=== PATIENT | female | born 1960 | race Caucasian/White ===

== ENCOUNTER 2023-07-04 13:45 | Outpatient (CLI) | payer OTHER, SELFPAY ==
--- NOTE | ~2023-07-04 | XR_ITS ---
AP and lateral views of the bilateral hips Clinical history: Pain Findings: No acute fracture or dislocation is seen. Osseous alignment is anatomic. Bilateral hip and SI joint spaces are preserved. Soft tissues are unremarkable. Impression: No significant abnormality is seen. Reviewed, dictated and finalized at location . Impression: No significant abnormality is seen.
--- NOTE | ~2023-07-04 | XR_ITS ---
EXAM: XR knee RT 3V, XR knee LT 3V DATE: 07/04/2023 14:43 HISTORY: Hip and knee pain . COMPARISON: None available. FINDINGS: Normal mineralization. No fracture or dislocation. No lytic or blastic lesion. Mild bilate ral medial and lateral joint space narrowing. Moderate bilateral tricompartmental osteophytosis. Mild right quadriceps enthesopathy. No erosion or periosteal change. Soft tissues within normal limits. IMPRESSION: Moderate bilateral tricompartmental knee osteoarthritis. Reviewed, dictated and finalized at location K. IMPRESSION: Moderate bilateral tricompartmental knee osteoarthritis.
== END 2023-07-04 13:46 ==
LOC: MICIMG 13:49
PROVIDERS: PCP Internal Medicine; Visit Provider Internal Medicine
DX: M17.0 Bilateral primary osteoarthritis of knee (principal); M25.551 Pain in right hip; M25.552 Pain in left hip
CPT/HCPCS: 73521; 73562

== ENCOUNTER 2023-08-03 01:50 | Day surgery (SDC) | payer OTHER, SELFPAY ==
[2023-07-24 09:09] VITALS: BMI 33.7
[2023-08-03 07:27] VITALS: PULSE 82; RESP 16; TEMP 36.4; O2SAT 98
[2023-08-03] MEDS: LACTATED RINGERS 1,000 ML 150 ML IV CONT (07:37)
--- NOTE | 2023-08-03 07:46 | P.PNAN_ITS ---
Anes - Initial Pre Proc Eval Procedure: Operation Date: 08/03/23 08:30 Proposed Procedures p Esophagogastroduodenoscopy&Screen Colon - Dick Menendez MD Date/Time: 08/03/23 07:46 Surgeon: Dick Menendez MD Pre Op Diagnosis: GERD, Neoplasm Screening Patient Data Age: 63 Gender: F Height: 1.63 m Weight: 88.2 kg Last Vital Signs Temp 97.5 F L 08/03/23 07:27 Pulse 82 08/03/23 07:27 Resp 16 08/03/23 07:27 Pulse Ox 98 08/03/23 07:27 O2 Del Method Room Air 08/03/23 07:27 Allergies Allergy/AdvReac Type Severity Reaction Status Date / Time No Known Allergies Allergy Unknown Verified 08/03/23 07:25 Home Medications Medication Instructions Recorded Confirmed Type atorvastatin 10 mg tablet 10 mg PO DAILY 07/24/23 08/03/23 History meloxicam 15 mg tablet 15 mg PO DAILY 07/24/23 08/03/23 History mirabegron 25 mg tablet,extended 25 mg PO DAILY 07/24/23 08/03/23 History release 24 hr omeprazole 40 mg capsule,delayed 40 mg PO DAILY 07/24/23 08/03/23 History release risedronate 150 mg tablet 150 mg PO MONTHLY 07/24/23 08/03/23 History Patient hx anesthesia problems: none Family hx anesthesia problems: none Results Review: All pre-operative results and documents have been reviewed as part of the pre- operative evaluation. [facility] Social History Social History Smoking status: Never smoker Alcohol intake: current Drinks per week: 4 Substance use: current Substance use type: marijuana Other substance usage details: every other week Living arrangements: with family Spiritual care concerns: No Anes - Eval Final PreProcedure Day of Procedure 08/03/23 07:46 Patient weight: obese Heart: regular rate and rhythm Lungs: clear to auscultation Airway: Mallampati scale class II Neurological: alert and oriented Last oral intake: >/= 8 hours ASA classification: II Emergent: no Anesthetic plan: proceed Anesthesia type and monitoring: general GIVS and standard monitoring Results Review: All pre-operative results and documents have been reviewed as part of the pre- operative evaluation. Hyperlipidemia, GERD. Informed Consent: The patient's anesthetic plan and its attendant risks and benefits were discussed with the patient/family/POA. Questions were solicited and answers provided to the satisfaction of the patient/family/POA.
--- NOTE | 2023-08-03 08:00 | PM.HPGS ---
History of Present Illness History of Present Illness Consent: Risks, benefits, and alternatives have been discussed and questions answered. Patient agrees to proceed with procedure. Chief complaint: GERD, Neoplasm Screening Narrative: Luis F Hess is a 63 year old female with gerd on omeprazole, never had egd, last colonoscopy 10 years ago Review of Systems Review of Systems: All systems reviewed & are unremarkable except as noted in HPI and below PMFSH Past Medical History Medical History (Updated 08/03/23 @ 08:02 by Dick Menendez MD) Colon cancer screening GERD (gastroesophageal reflux disease) Social History Social History Smoking status: Never smoker Alcohol intake: current Drinks per week: 4 Substance use: current Substance use type: marijuana Other substance usage details: every other week Living arrangements: with family Spiritual care concerns: No Meds Home Medications and Allergies Home Medications Medication Instructions Recorded Confirmed Type atorvastatin 10 mg tablet 10 mg PO DAILY 07/24/23 08/03/23 History meloxicam 15 mg tablet 15 mg PO DAILY 07/24/23 08/03/23 History mirabegron 25 mg tablet,extended 25 mg PO DAILY 07/24/23 08/03/23 History release 24 hr omeprazole 40 mg capsule,delayed 40 mg PO DAILY 07/24/23 08/03/23 History release risedronate 150 mg tablet 150 mg PO MONTHLY 07/24/23 08/03/23 History Allergies Allergy/AdvReac Type Severity Reaction Status Date / Time No Known Allergies Allergy Unknown Verified 08/03/23 07:25 Vital Signs Vital Signs - 24 hr 08/03/23 07:27 Temperature 97.5 F L Pulse Rate 82 Respiratory Rate 16 Pulse Oximetry 98 Oxygen Delivery Room Air Exam Const: General: comfortable and no acute distress HENMT: Face/Nose/Sinus: Normal nares present Eyes: General: appearance normal, both eyes and all related structures Neck: Neck: no JVD Resp: Auscultation: clear to auscultation bilaterally Cardio: Rate: regular rate Rhythm: regular rhythm GI: Inspection: non-distended GI Palp: Yes Soft to palpation Skin: General skin exam: normal color Neuro: General: gait normal Speech: normal speech Extrem: General: normal to inspection Psych: Mental Status: mental status grossly normal Assessment and Plan Assessment and plan (1) GERD (gastroesophageal reflux disease): Code(s): K21.9 - Gastro-esophageal reflux disease without esophagitis Status: Acute Assessment and Plan: egd on omeprazole (2) Colon cancer screening: Code(s): Z12.11 - Encounter for screening for malignant neoplasm of colon Status: Acute Assessment and Plan: colonoscopy
--- NOTE | 2023-08-03 08:12 | SUR.OPER ---
EGD END 807 COLONOSCOPY START 811
[2023-08-03 08:23] VITALS: BP 99/48; PULSE 72; RESP 16; O2SAT 99
[2023-08-03 08:33] VITALS: BP 102/55; PULSE 73; RESP 18; O2SAT 98
[2023-08-03 08:43] VITALS: BP 112/56; PULSE 70; RESP 20; O2SAT 99
== END 2023-08-03 08:54 | disposition home or self-care (01) ==
PROVIDERS: PCP Internal Medicine; Referring Provider Obstetrics & Gynecology; Visit Provider Internal Medicine Gastroenterology
PROC: 0DJ08ZZ Inspection of Upper Intestinal Tract, Via Natural or Artificial Opening Endoscopic (ICD-10-PCS; CPT 43235; principal; 2023-08-03 08:30)
DX: Z12.11 Encounter for screening for malignant neoplasm of colon (principal); K21.9 Gastro-esophageal reflux disease without esophagitis; K44.9 Diaphragmatic hernia without obstruction or gangrene; K64.8 Other hemorrhoids
CPT/HCPCS: 43239; 45378; 88305; J2704; J7120